=== PATIENT | female | born 1995 | race Caucasian/White ===

== ENCOUNTER 2022-08-02 13:45 | Outpatient (CLI) | payer BC, SELFPAY | END 2022-08-02 13:46 | disposition home or self-care (01) | LOC: NFLDREF 08-06 17:39 | PROVIDERS: PCP Family Medicine; Visit Provider Registered Nurse | DX: Z31.41 Encounter for fertility testing (principal) | CPT/HCPCS: 82670; 83001; 84144; 84443 ==

== ENCOUNTER 2022-08-12 10:00 | Outpatient (CLI) | payer BC, SELFPAY ==
[2022-08-13 09:58] LABS: Follicle Stimulating Hormone 4.2 IU/L
[2022-08-13 10:30] LABS: Estradiol Premenol Female 44 pg/mL
== END 2022-08-12 10:01 | disposition home or self-care (01) ==
LOC: LAB 08-18 19:48
PROVIDERS: PCP Family Medicine; Visit Provider Registered Nurse
DX: Z31.41 Encounter for fertility testing (principal); Z31.9 Encounter for procreative management, unspecified
CPT/HCPCS: 36415; 82670; 83001

== ENCOUNTER 2022-08-13 09:51 | Outpatient (CLI) | payer BC, SELFPAY ==
--- NOTE | 2022-08-13 10:15 | CRLHL7_ITS ---
For Patients: As a result of the Century Cures Act, medical imaging exams and procedure reports are released immediately into your electronic medical record. You may view this report before your referring provider. If you have questions, please contact your health care provider. INDICATION: Fertility evaluation. TECHNIQUE: Hysterosalpingogram with fluoroscopy. Catheterization and contrast injection was performed by head of precision targeting. IMPRESSION: Normal exam. Uterine contour is normal. No discernible filling defect or septation. Fallopian tubes are normal with free contrast spillage around both ovaries. Fluoroscopy time 11 seconds. Five images were captured. Dictated by Moose Mason MD @ 08/13/2022 11:15:58 AM (Electronically Signed)
--- NOTE | 2022-08-13 11:15 | P.GYNPRC_ITS ---
Procedure Note Date Seen: 08/13/22 Procedure Details: PREPROCEDURE DIAGNOSIS: Infertility. POSTPROCEDURE DIAGNOSIS: 1. Infertility. 2. Patent fallopian tubes bilaterally. NAME OF PROCEDURE: Hysterosalpingogram. SURGEON: Shyanne. ANESTHESIA: None. COMPLICATIONS: None. PROCEDURE: After obtaining verbal consent, the patient was placed in the dorsal lithotomy position on the x-ray table. An open-sided bivalve speculum was introduced into the vagina and the cervix easily visualized. The cervix and vagina were then prepped with Betadine. The anterior lip of the cervix was grasped with a single-tooth tenaculum for traction. A balloon tipped double- lumen catheter was then gently inserted through the cervical opening into the uterine cavity to the level of the fundus. The balloon was insufflated with 3 mL of air. The tenaculum and speculum were removed. The patient was repositioned in the supine position, covered, and the radiologist was called to the room. A hysterosalpingogram was then performed. A total of 6 cc of Optiray 300 water soluble contrast dye was injected throught he double-lumen catheter under moderate pressure. There was immediate fill of the uterine cavity to the cornua immediate fill of both fallopian tubes and free spillage of dye on both sides. The balloon was deflated. The catheter was removed. The patient tolerated the procedure well, though she did have moderate cramping discomfort during and just after the procedure. She was discharged to home in stable condition and to follow [facility] as [facility]. A referral to reproductive endocrinology was discussed as couple has now completed their fertility workup, and only male factor (low sprem morphology) was discovered and urology referral cannot be obtained until 2022. Patient will let me know if they desire a referral to [facility].
== END 2022-08-13 09:52 | disposition home or self-care (01) ==
LOC: RAD 09:51
PROVIDERS: PCP Family Medicine; Visit Provider Obstetrics & Gynecology
DX: Z31.41 Encounter for fertility testing (principal)
CPT/HCPCS: 58340; 74740; A4649; Q9967

== ENCOUNTER 2022-10-08 14:10 | Outpatient (CLI) | payer BC, SELFPAY ==
[2022-10-08 20:21] LABS: Hepatitis B Surface Antigen* Negative (Negative)
[2022-10-08 20:28] LABS: HIV 1/2/P24 Combo Screen* Negative (Negative)
[2022-10-08 20:39] LABS: Hepatitis C Virus Antibody* Negative (Negative)
[2022-10-08 21:22] LABS: Chlamydia DNA Amplified* NOT DETECTED (No Detected); GC DNA Amplified* NOT DETECTED (No Detected)
[2022-10-11 00:37] LABS: Varicella-Zoster Virus Ab, IgG 463.8 IV
[2022-10-11 00:41] LABS: Rubella Antibody IgG 6.1 IU/mL
[2022-10-11 02:09] LABS: Rapid Plasma Reagin (RPR) Non Reactive (Non Reactive)
== END 2022-10-08 14:11 | disposition home or self-care (01) ==
PROVIDERS: PCP Family Medicine; Visit Provider Registered Nurse
DX: Z34.91 Encounter for supervision of normal pregnancy, unspecified, first trimester (principal); Z3A.08 8 weeks gestation of pregnancy
CPT/HCPCS: 76817; 86592; 86703; 86762; 86787; 86803; 86850; 86900; 86901; 87086; 87340; 87491; 87591

== ENCOUNTER 2022-10-22 09:07 | Outpatient (CLI) | payer BC, SELFPAY ==
--- NOTE | 2022-10-22 09:15 | CRLHL7_ITS ---
For Patients: As a result of the Cures Act, medical imaging exams and procedure reports are released immediately into your electronic medical record. You may view this report before your referring provider. If you have questions, please contact your health care provider. INDICATION: Followup; mild increase in soft tissue fluid. COMPARISON: Ob ultrasound October 08, 2022. Technique: OB ultrasound. Findings : Single viable intrauterine gestation of 11 weeks and 5 days duration with expanded expected date of delivery 05/10/2023. cardiac activity is 171 beats per minute. Onaka-rump length is 5 cm and the diameter of the gestational sac is 5 cm. The right ovary is measuring 3.1 x 2.2 x 2.4 cm and the left ovary is measuring 4 x 3 x 2.7 cm. Corpus luteum cyst left ovary without any interval change. No fluid identified in the posterior body wall of the fetus. IMPRESSION: Single viable intrauterine gestation of 11 weeks and 5 days duration with the expected date of delivery 05/10/2023. no abnormalities identified. Dictated by Ary Mckeon MD @ 10/22/2022 1:38:59 PM (Electronically Signed)
== END 2022-10-22 09:08 | disposition home or self-care (01) ==
LOC: US 09:08
PROVIDERS: PCP Family Medicine; Visit Provider Registered Nurse
DX: Z34.91 Encounter for supervision of normal pregnancy, unspecified, first trimester (principal); Z3A.11 11 weeks gestation of pregnancy
CPT/HCPCS: 76816

== ENCOUNTER 2022-12-26 13:43 | Outpatient (CLI) | payer BC, SELFPAY ==
--- NOTE | 2022-12-26 14:00 | CRLHL7_ITS ---
For Patients: As a result of the Century Cures Act, medical imaging exams and procedure reports are released immediately into your electronic medical record. You may view this report before your referring provider. If you have questions, please contact your health care provider. INDICATION: Evaluate anatomy. COMPARISON: 10/08/2022, 10/22/2022 TECHNIQUE: Real time wilde scale imaging of the fetus was performed as well as color Doppler analysis of the umbilical vessels. FINDINGS: Sonographic imaging demonstrates a single living intrauterine gestation. Fetus demonstrates a regular cardiac rate of 142 beats per minute. Fetus has a variable position. The placenta lies posteriorly. The edge of the placenta is located 4 millimeters from the internal cervical os. Amniotic fluid volume appears normal. Single deepest vertical pocket: 4.1 cm. The cervix is closed and measures 3.2 cm in length. The composite ultrasound gestational age is calculated at 20 weeks 2 days with an estimated sonographic due date of 05/13/2023. The estimated weight is 358 grams which lies at the 81st %. The following biometric measurements were obtained: Biparietal diameter: 4.6 cm/19 weeks 6 days 52nd% Head circumference: 17.3 cm/19 weeks 6 days 43rd% Abdominal circumference: 15.8 cm/20 weeks 6 days 78th% Femur length: 3.3 cm/20 weeks 1 day 55th% The HC/AC ratio measures: 1.10 range (1.07-1.25) On anatomic survey, there is a normal appearance of the cerebral ventricles, cavum septi pellucidi, cisterna magna and cerebellum. The nose, lips, and facial profile appear normal. The cervical, thoracic and lumbar spine are well visualized and appear normal. There is a normal four-chamber heart view and the left and right ventricular outflow tracts appear normal. The diaphragm and stomach appear normal. The kidneys and bladder also appear normal. There is a normal three-vessel cord and cord insertion site. The four extremities appear normal. IMPRESSION: Concordance of clinical and sonographic dating. No intrinsic abnormalities noted on anatomic survey. Low lying posterior placenta with the placental edge 4 millimeters from the internal cervical os with transvaginal imaging. Dictated by Giovanni Moreira MD @ 12/27/2022 11:22:16 AM (Electronically Signed)
== END 2022-12-26 13:44 | disposition home or self-care (01) ==
LOC: US 13:43
PROVIDERS: PCP Family Medicine; Visit Provider Registered Nurse
DX: Z34.92 Encounter for supervision of normal pregnancy, unspecified, second trimester (principal); O44.42 Low lying placenta NOS or without hemorrhage, second trimester; Z3A.20 20 weeks gestation of pregnancy
CPT/HCPCS: 76805; 76817

== ENCOUNTER 2023-02-18 10:13 | Outpatient (CLI) | payer BC, SELFPAY | END 2023-02-18 10:14 | disposition home or self-care (01) | LOC: NFLDREF 02-20 06:00 | PROVIDERS: PCP Family Medicine; Referring Provider Family Medicine; Visit Provider Registered Nurse | DX: Z34.90 Encounter for supervision of normal pregnancy, unspecified, unspecified trimester (principal) | CPT/HCPCS: 86592 ==

== ENCOUNTER 2023-04-15 07:54 | Outpatient (CLI) | payer BC, SELFPAY ==
--- NOTE | 2023-04-15 08:15 | CRLHL7_ITS ---
For Patients: As a result of the Cures Act, medical imaging exams and procedure reports are released immediately into your electronic medical record. You may view this report before your referring provider. If you have questions, please contact your health care provider. INDICATION: Third trimester scan, evaluate growth. COMPARISON: 03/18/2023 TECHNIQUE: Real time wilde scale imaging of the fetus was performed. FINDINGS: Sonographic imaging demonstrates a single living intrauterine gestation. Fetus demonstrates a regular cardiac rate of 147 beats per minute. Fetus has a vertex position. The placenta lies left posterior. Amniotic fluid volume appears normal and there is a single deepest vertical pocket: 4.0 cm. The estimated weight is 2635gm which lies at the 40th %. On the prior OB ultrasound exam dated 03/18/2023 the estimated weight was at the 14th%. BPD 60th percentile. HC 60th percentile. AC 49th percentile. FL 17th percentile. The HC/AC ratio measures 1.05 range (0.93-1.09). IMPRESSION: Sonographic gestational age 35 weeks 5 days and sonographic due date 05/15/2023. Good correlation with dates. Normal interval growth. Estimated weight 40th percentile. Abdominal circumference 49th percentile. Dictated by Giovanni Moreira MD @ 04/15/2023 10:43:58 AM (Electronically Signed)
== END 2023-04-15 07:55 | disposition home or self-care (01) ==
LOC: US 07:55
PROVIDERS: PCP Family Medicine; Visit Provider Obstetrics & Gynecology
DX: Z34.93 Encounter for supervision of normal pregnancy, unspecified, third trimester (principal); Z3A.35 35 weeks gestation of pregnancy
CPT/HCPCS: 76816; 87081; 87653

== ENCOUNTER 2023-04-24 17:27 | Inpatient (IN) | payer BC, SELFPAY ==
[2023-04-24] VITALS (8 sets, daily range): BP systolic 130–134; BP diastolic 77–83; PULSE 83–99; RESP 15–16; TEMP 36.8–36.9; O2SAT 93–97; BMI 27.7
[2023-04-24 16:37] LABS: Amnisure Rom* Negative; Clue Cells No Clue Cells Seen (None Seen); Trichomonas No Trichomonas Seen (None Seen); Yeast No Yeast Seen (None Seen)
--- NOTE | 2023-04-24 16:47 | CRLHL7_ITS ---
For Patients: As a result of the Century Cures Act, medical imaging exams and procedure reports are released immediately into your electronic medical record. You may view this report before your referring provider. If you have questions, please contact your health care provider. INDICATION: Evaluate VAHID and well-being TECHNIQUE: Ultrasound OB pelvis transabdominal. Real-time wilde-scale imaging of the fetus was performed. COMPARISON: April 15, 2023 FINDINGS: Sonographic imaging demonstrates a single living intrauterine gestation. Fetus demonstrates a regular cardiac rate of 146 beats per minute. Fetus has a vertex orientation. The placenta lies posterior and to the left. Amniotic fluid volume appears normal with an VAHID of 4.3 cm. Single deepest pocket is 2.5. breathing movements, motion, and tone were all observed. IMPRESSION: Single viable intrauterine with a biophysical profile 8/8. Single deepest pocket is 2.5. Dictated by Vero Toro MD @ 04/24/2023 5:58:53 PM (Electronically Signed)
--- NOTE | 2023-04-24 17:35 | P.OBHP_ITS ---
OB - H&P: HPI Labor/Induction History of Present Illness Time Seen by Provider: 17:35 Date Seen: 04/24/23 Chief Complaint: The patient is a 28 year old 1 para 0 at 36 6/7 weeks gestation by LMP consistent with 1st trimester ultrasound, who presents with PPROM. OB Problem list: 1. H/o infertility. Had evaluation at [facility] and consult with [facility]. +UPT before initiating treatment! 2. Family h/o mental retardation in 4/7 aunts and uncles on Luis's side of family. Genetic testing for Kimberley and Luis are reportedly normal. 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 Possible posterior edema on initial u/s. F/u in 2 weeks: no fluid identified in the posterior body wall of the fetus 4. Rubella non-immune: recommend immunization. 5. Low lying placenta at 20 week: 0.4 cm - Plan: Repeat ultrasound at 32 weeks to assess placenta location: Posterior placenta, 4.5 cm from the internal os - Follow up growth scan at 36 weeks due to EFW 81%tile --> 14%tile: 04/15/23: EFW: 41%, normal Chief complaint: Maternity : 1 Para: 0 Date of last menstrual period: 08/09/22 Estimated date of delivery: 05/16/23 Gestational age based on last menstrual period: 36 Indications for induction: other (PPROM) Narrative: Patient states that she was doing well until about 3:00 p.m. when she felt a mucous discharge and after wiping she saw a streak of blood. Patient states that right afterwards she again felt like when your are bleeding on your period and she went back to the restroom and noticed a more watery discharge with bright red blood that dripped on the toilet. She placed a pad and called the unit. Patient states that she had to change the pad prior to coming in and this felt soaked. Upon evaluation at the unit, no evidence of gross rupture of membranes, AmniSure was negative, OB US completed and found a normal SDP of amniotic fluid but VAHID was less than 5cm. Recommendation was given to perform a fern test and while I was talking to her prepping her for speculum exam she again felt a watery like discharge and it was evident that this is amniotic fluid. Recommendation was given for admission and delivery. History of Present Dating criteria: based on LMP care: good care Ultrasounds: normal 1st trimester US and normal mid trimester US complications comment: PPROM Medical complications: none Labs Blood type: O (+) positive Rubella: nonimmune RPR/VDLR: nonreactive GBS status: negative HBsAG: negative Review of Systems Status of ROS: Reports: 10 or more systems reviewed and unremarkable except as noted in History and below Meds Home Medications and Allergies Home Medications Medication Instructions Recorded Confirmed Type fluticasone propionate 50 1 spray intranasal QDAY 07/19/22 04/24/23 History mcg/actuation nasal spray,suspension (Flonase Allergy Relief) prenat.vits,hemant,jse-yvju-etxnp 1 tab PO QDAY 10/08/22 04/24/23 History Allergies Allergy/AdvReac Type Severity Reaction Status Date / Time Sulfa Antibiotics Allergy Intermediate Hives Uncoded 04/15/23 08:38 OB - H&P: Exam Physical Exam: Vital signs: Pulse BP Pulse Ox 89 130/77 96 04/24/23 15:57 04/24/23 15:57 04/24/23 15:57 Narrative: VITAL SIGNS: As noted above. GENERAL APPEARANCE: Alert, cooperative female in no acute distress. MOOD & AFFECT: Normal. ABDOMEN: Gravid, non tender : 1/70/vx/-1 EXTREMITIES: Nonedematous. Well perfused. Nontender. NST: 135bpm/positive accelerations/negative decelerations/ moderate variability/ irregular uterine contractions OB - Results Imaging OB US: Attestation: I have reviewed the pertinent imaging results. OB - Problem Based A/P Additional Plan (1) premature rupture of membranes: Status: Acute Plan: 1. GBS negative no need for antibiotic prophylaxis. 2. Induction/augmentation of labor, patient is interested in starting oxytocin as soon as possible if uterine contractions are spaced out. Otherwise will try to avoid multiple cervical checks to decrease risk of infection. 3. Pain management as preferred by patient. 4. Continuos monitoring due to episode of bleeding, r/o abruption continue to monitor closely, at this moment no additional episodes of bleeding other that the one described that happened at patients home.
[2023-04-25] VITALS (62 sets, daily range): BP systolic 102–224; BP diastolic 50–162; PULSE 71–121; RESP 15–18; TEMP 36.4–37.1; O2SAT 92–98
[2023-04-25 01:08] LABS: Basophils Percent Auto 0.2 % (0.0-3.0); Eosinophils Percent Auto 1.1 % (0.0-7.0); Hematocrit 38.7 % (33.0-51.0); Hemoglobin* 13.2 gm/dL (12.0-16.0); Immature Granulocytes Pct Auto 1.1 %; Lymphocytes Percent Auto 17.3 % (20-44); Mean Corpuscular HGB Conc 34 gm/dL (32-36); Mean Corpuscular Hemoglobin 32 pg (26-34); Mean Corpuscular Volume 92 fL (80-100); Monocytes Percent Auto 6.8 % (0.0-11.0); Neutrophils Percent Auto 73.5 % (42.0-72.0); Platelet Count* 206 K/uL (140-440); Red Blood Count 4.19 m/uL (4.00-5.20); White Blood Count* 12.24 K/uL (4.50-11.00)
[2023-04-25] MEDS: LACTATED RINGERS 1000 ML 1,000 ML 999 ML IV ×3 (01:11→09:10)
[2023-04-25 01:13] LABS: Slide Review Reflex No
[2023-04-25] MEDS: ROPIVACAINE 0.2% 100 ml 100 ML 12 MG EPIDURAL (02:03)
--- NOTE | 2023-04-25 02:33 | PM.ANBPRC ---
[facility] Medical History Carpal tunnel syndrome Surgical History History of third molar tooth extraction (2016) Family History Mother High blood pressure High cholesterol Pre-diabetes ADD (attention deficit disorder) Maternal Grandfather Diabetes Colon cancer Heart disease Stroke High blood pressure Paternal Grandfather Lupus Diabetes Bladder cancer FHx: prostate cancer Kidney disease Heart disease High blood pressure Father High blood pressure Sister ADD (attention deficit disorder) Maternal Grandmother High cholesterol Paternal Grandmother Sjogren's disease Social History What is your current living situation?: I presently have a place to live Problems where you live: no known problems In the past 12 months, utilities in danger of being shut off: no In the past 12 mos, have been you worried that your food would run out before you had money to buy more?: never true In the past 12 mos, the food you bought just didn't last and you didn't have money to buy more?: never true Smoking Status: Never smoker How often does anyone, including family, friends and others, physically hurt you: never How often does anyone, including family, friends and others, insult or talk down to you: never How often does anyone, including family, friends and others, threaten you with harm: never How often does anyone, including family, friends and others, scream or curse at you: never Little interest or pleasure in doing things: not at all Feeling down, depressed, or hopeless: not at all Meds Home Medications and Allergies Home Medications Medication Instructions Recorded Confirmed Type fluticasone propionate 50 1 spray intranasal QDAY 07/19/22 04/24/23 History mcg/actuation nasal spray,suspension (Flonase Allergy Relief) prenat.vits,hemant,isi-ebie-nccif 1 tab PO QDAY 10/08/22 04/24/23 History Allergies Allergy/AdvReac Type Severity Reaction Status Date / Time Sulfa Antibiotics Allergy Intermediate Hives Uncoded 04/15/23 08:38 Results Labs Labs: Laboratory Results - last 24 hr 04/24/23 04/25/23 16:10 01:00 WBC 12.24 H RBC 4.19 Hgb 13.2 Hct 38.7 MCV 92 MCH 32 MCHC 34 RDW Coeff of See 13.0 Plt Count 206 Neut % (Auto) 73.5 H Lymph % (Auto) 17.3 L [place] % (Auto) 6.8 Eos % (Auto) 1.1 Baso % (Auto) 0.2 Neut # (Auto) 9.00 H Lymph # (Auto) 2.10 [place] # (Auto) 0.80 Eos # (Auto) 0.10 Baso # (Auto) 0.00 Abs Immat Gran (auto) 0.10 Imm/Tot Granulo (auto) 1.1 Membrane Rupture Negative Vaginal Trichomonas No Trichomonas Seen Vaginal Yeast No Yeast Seen Vaginal Clue Cells No Clue Cells Seen Blood Type O Positive Antibody Screen NEGATIVE Vital Signs Vital Signs: Last Vital Signs Temp 98.3 F 04/24/23 19:16 Pulse 83 04/25/23 02:30 Resp 15 04/24/23 19:16 BP 123/66 04/25/23 02:30 Pulse Ox 94 04/25/23 01:57 Weight: 66.587 kg Height: 154.94 cm Anesthesia Procedures Epidural Insertion Patient Location: OB Start Time: 01:40 Stop Time: 02:25 Start Date: 04/25/23 Stop Date: 04/25/23 Reason for Block: procedure for pain Patient Position: sitting Performed By: Chase Lemos Preanesthetic Checklist: IV checked, risks and benefits discussed, surgical consent, monitors and equipment checked, pre-op evaluation, timeout performed and anesthesia consent Prep: chlorhexidine gluconate Monitoring: blood pressure monitoring, continuous pulse oximetry and heart rate Approach: midline Vertebral Space: lumbar (1-5) Epidural Technique: RADHA saline Needle Type: Tuohy needle Injection Technique: continuous catheter Needle gauge: 17 Needle Length (cm): 10 cm Needle Insertion Depth (cm): 6 Catheter Gauge: 19 Catheter Type: multi-orifice Catheter at skin depth (cm): 12 Test Dose Result: negative and lidocaine 1.5% with epinephrine 1 to 200,000
[2023-04-25] MEDS: OXYTOCIN 30 unit/500 ML in NS 30 UNIT/500 ML BAG IVPB (07:05)
[2023-04-25] MEDS: METHYLERGONOVINE MALEATE 0.2 MG/ML INJ IM ×2 (07:48→08:09)
[2023-04-25] MEDS: TRANEXAMIC ACID 100 MG/ML INJ 1000 MG IV (07:51)
[2023-04-25] MEDS: miSOPROStoL 800 MCG/4 TABLET PR (07:52)
[2023-04-25 08:23] LABS: Basophils Percent Auto 0.2 % (0.0-3.0); Eosinophils Percent Auto 0.1 % (0.0-7.0); Hematocrit 36.2 % (33.0-51.0); Hemoglobin* 12.3 gm/dL (12.0-16.0); Immature Granulocytes Pct Auto 0.2 %; Mean Corpuscular HGB Conc 34 gm/dL (32-36); Mean Corpuscular Hemoglobin 32 pg (26-34); Mean Corpuscular Volume 93 fL (80-100); Monocytes Percent Auto 6.4 % (0.0-11.0); Neutrophils Percent Auto 84.1 % (42.0-72.0); Platelet Count* 178 K/uL (140-440); RDW Coefficient of Variation % 13.1 % (11.5-15.5); Red Blood Count 3.88 m/uL (4.00-5.20); White Blood Count* 14.51 K/uL (4.50-11.00)
[2023-04-25 08:27] LABS: Slide Review Reflex No
[2023-04-25] MEDS: ONDANSETRON 2 MG/ML inj 4 MG IV (08:31)
[2023-04-25 08:45] LABS: INR 0.98 (0.91-1.10); Prothrombin Time 13.6 Seconds
[2023-04-25 08:46] LABS: Fibrinogen* 413 mg/dL (200-450); Partial Thromboplastin Time* 28 Seconds (23-33)
--- NOTE | 2023-04-25 10:43 | W.PM.OBVAGDE ---
OB Procedure Vag Delivery Mother Details Mother Details: The patient is a 28 year-old, 1, Para 0, admitted on 04/24/23 at 37.0 Days gestation after PPROM at 36 6/7 weeks. : 1 Para: 1 Weeks Gestation: 37 Admission Date: 04/24/23 Additional Details Amniotic Membrane Rupture Date: 04/24/23 Amniotic Membrane Rupture Time: 14:00 Heart: heart tones during second stage were [] Delivery Details Delivery Date: 04/25/23 Delivery Time: 07:39 Route of delivery: Infant Gender: Male Viability: Alive; Heart Rate Present Position at Delivery: OA Delivery Details: Delivered over intact perineum, a tight nuchal cord identified attempted to be reduced but this was not possible, tried to deliver through but this was not possible either, I then proceeded to clamp and cut the umbilical cord at the perineum. was placed on maternal abdomen. Nose and mouth were bulb suctioned.? weight: 6 pounds and 4 ounces. Immediate uterine atony associated with significant heavy bleeding, managed with IV Oxytocin, IM Methergine x1, 1g of TXA, 800mcg rectal Cytotec. Cervix was evaluated and no lacerations identified, laceration repaired and brisk bleeding noted, ordered lab work r/o coagulopathy. 1 Minute Interval Total Score: 7 5 Minute Interval Total Score: 8 Additional Details Shoulder Dystocia: No Placenta Delivery Time: 07:41 Placental Delivery Description: Spontaneous (Looked complete but also with a large clot, suspicious for abruption. ) Delivery repair: Vicryl Procedure Done: Global Blood Loss: 471 Laceration: Perineal - 2nd Degree Episiotomy Description: None Blood Loss Measurement Type: QBL Bakri Used: No Sponge/Need Count Correct: Yes Cord Vessel Description: 3 Vessels, Nuchal Cord, Tight and Clamped/Cut Event Summary Status: Mother and were stable after delivery. Disposition: floor
[2023-04-25] MEDS: ACETAMINOPHEN 500 MG TABLET 1000 MG PO ×2 (12:54→19:35)
[2023-04-25] MEDS: IBUPROFEN 600 MG TABLET PO ×2 (16:08→21:30)
[2023-04-26 01:00] VITALS: BP 107/75; PULSE 76; RESP 15; TEMP 36.7
[2023-04-26] MEDS: ACETAMINOPHEN 500 MG TABLET 1000 MG PO (01:13)
[2023-04-26 05:15] VITALS: BP 114/76; PULSE 78; RESP 15; TEMP 36.6
[2023-04-26 06:56] LABS: Hemoglobin* 10.7 gm/dL (12.0-16.0)
[2023-04-26] MEDS: MEASLES,MUMPS,RUBELLA VACC/PF 1 DOSE INJ 1 EACH SUBCUT (07:47)
[2023-04-26] MEDS: DOCUSATE SODIUM 100 MG CAPSULE PO (07:48)
[2023-04-26 07:53] VITALS: BP 112/72; PULSE 92; RESP 20; TEMP 36.3; O2SAT 95
--- NOTE | 2023-04-26 09:39 | P.DS_ITS ---
DS: Providers Provider Date Seen: 04/26/23 Date of admission: 04/24/23 17:27 Primary care physician: Tiara Kee MD Admitting Clinician: Dee Saldana MD Attending Physician on discharge: Maria Isabel Ocampo MD Date of Discharge: 04/26/23 DS: Diagnosis Discharge Diagnosis (1) Normal spontaneous vaginal delivery: Status: Acute (2) Obstetrical laceration, second degree: Status: Acute (3) premature rupture of membranes: Status: Acute Exam Narrative: Exam Narrative: General: Pleasant, no acute distress Heart: Regular rate and rhythm, no murmur or gallop Lungs: Clear to auscultation bilaterally Abdomen: Soft, nontender, fundus well below umbilicus Lower extremities: No edema or erythema Const: Vital Signs, click to edit/add: Vital Signs - 24 hr 04/25/23 09:40 04/25/23 09:49 04/25/23 09:49 Temperature Pulse Rate 74 80 Pulse Rate [Blood Pressure Cuff] Respiratory Rate 18 Blood Pressure 123/71 126/71 Blood Pressure [Le ft Arm] Pulse Oximetry Oxygen Delivery Me thod 04/25/23 09:54 04/25/23 09:55 04/25/23 12:20 Temperature 97.9 F 98.2 F Pulse Rate 71 Pulse Rate [Blood Pressure Cuff] 72 Respiratory Rate 18 18 Blood Pressure 126/71 Blood Pressure [Le ft Arm] 114/77 Pulse Oximetry Oxygen Delivery Me thod 04/25/23 16:15 04/25/23 21:00 04/26/23 01:00 Temperature 97.6 F 98.3 F 98.0 F Pulse Rate Pulse Rate [Blood Pressure Cuff] 90 78 76 Respiratory Rate 18 16 15 Blood Pressure Blood Pressure [Le ft Arm] 107/74 108/71 107/75 Pulse Oximetry 96 Oxygen Delivery Me thod Room Air 04/26/23 05:15 04/26/23 07:53 Temperature 97.9 F 97.4 F L Pulse Rate Pulse Rate [Blood Pressure Cuff] 78 92 Respiratory Rate 15 20 Blood Pressure Blood Pressure [Le ft Arm] 114/76 112/72 Pulse Oximetry 95 Oxygen Delivery Me thod Room Air Room Air OB - DS: Summary Hospital Course Hospital Course: Kimberley is a 28-year-old G1 now P 1-0-0-1 woman who is status post normal s pontaneous vaginal delivery on 04/24/2023 at 37 0/7 weeks gestation after PPROM at 36 6/7 weeks' gestation. She gave to a male . She had a 2nd degree perineal laceration. Findings of placenta were suspicious for abruption. QBL was 471 cc. OB Problem list: 1. H/o infertility. Had evaluation at [facility] and consult with MELODY. +UPT before initiating treatment! 2. Family h/o mental retardation in 4/7 aunts and uncles on Luis's side of family. Genetic testing for Kimberley and Luis are reportedly normal. 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 Possible posterior edema on initial u/s. F/u in 2 weeks: no fluid identified in the posterior body wall of the fetus 4. Rubella non-immune: recommend immunization. 5. Low lying placenta at 20 week: 0.4 cm - Plan: Repeat ultrasound at 32 weeks to assess placenta location: Posterior placenta, 4.5 cm from the internal os - Follow up growth scan at 36 weeks due to EFW 81%tile --> 14%tile: 04/15/23: EFW: 41%, normal Today, on day 1, she has no complaints. She has mild perineal soreness. She is bottle feeding her male infant. She is ambulating and urina ting without difficulty. She denies any heavy bleeding. Vitals have been stable. She has remained afebrile. Peripartum Data delivery method: Vaginal Laceration description: Perineal - 2nd Degree Episiotomy description: None Price Infant Gender: Male Time Spent with Patient Time attestation: Total time spent providing and/or coordinating discharge services: Time spent: Less than 30 minutes Discharge Plan Discharge Disposition: Home, Self-Care Date of Admission: 04/24/23 17:27 Attending Provider on Discharge: Maria Isabel Ocampo Primary Care Provider: Tiara Kee Condition: Improved Anticipated Discharge Date/Time: 04/26/23 09:43 Discharge Medications: New acetaminophen 500 mg Tablet 1,000 mg PO Q6H PRNQty: 0 0RF docusate sodium 100 mg Capsule 100 mg PO DAILY Qty: 0 0RF ibuprofen 600 mg Tablet 600 mg PO Q6H PRNQty: 0 0RF Continued prenat.vits,hemant,[id number] Tablet 1 tab PO QDAY fluticasone propionate [Flonase Allergy Relief] 50 mcg/actuation spray,suspension 1 spray intranasal QDAY Rx Instructions: administer into each nostril Discharge Orders: Discharge Order (Routine); Ordered 04/26/23 Ordered By: Maria Isabel Ocampo Patient Education: OB Vaginal/Bottle Feeding Additional Instructions: Discharge instructions were reviewed with the patient including signs and symptoms of infection and home going medications. Off Work or School for 6 weeks. Symptoms to report to doctor: -Bleeding that saturates more than one pad per hour ?-Passing clots larger than the size of a golf ball ?-Pain not relieved by prescribed medication ?-Fever above 100.4 degrees Fahrenheit ?-A foul vaginal odor ?-Difficulty in emotions, mood and functions ?-Thoughts of hurting yourself and/or ?-Painful, reddened area in your breast ?-Any drainage, redness or tenderness in your IV/epidural site ?-Severe headache that doesn't improve after taking medications ?-Changes in vision, including temporary loss of vision, blurred vision, and/or light sensitivity ?-Upper abdominal pain (usually under ribs on the right side) ?-Decrease in urination or painful, frequent urinating ?-Chest pain ?-Shortness of breath ?-Tenderness or pain with redness and/swelling in the calf(s) of your leg Follow [facility] with [facility]. consultation services are available to all mothers and babies for the first year after delivery.? To make an appointment, please call [phone]. Activity Detail: Nothing per vagina for 6 weeks Discharge Diet: Regular Follow Up Appointments: Tiara Kee MD [Primary Care Provider] - Maria Isabel Ocampo MD [Staff Physician] - Forms: [facility] Info Instructions DS:Data Additional Comments Additional comments: Hemoglobin 10.7 on day 1
== END 2023-04-26 13:10 | disposition home or self-care (01) | DRG 560 ==
LOC: OB OUT 04-25 07:36
PROVIDERS: Admitting Provider Obstetrics & Gynecology; PCP Family Medicine; Visit Provider Obstetrics & Gynecology
DX: O42.013 Preterm premature rupture of membranes, onset of labor within 24 hours of rupture, third trimester (principal); O72.1 Other immediate postpartum hemorrhage; O70.1 Second degree perineal laceration during delivery; Z3A.36 36 weeks gestation of pregnancy; Z37.0 Single live birth
CPT/HCPCS: 01967; 36415; 76819; 84112; 85018; 85025; 85384; 85610; 85730; 86850; 86900; 86901; 87210; 88307; 99213; A9270; J2210; J2371; J2405; J2795; J7120; S0020

== ENCOUNTER 2023-10-19 16:27 | Emergency (ER) | payer BC, SELFPAY ==
[2023-10-19 16:36] VITALS: BP 141/85; PULSE 108; RESP 16; TEMP 37.5; O2SAT 96; BMI 23.6
--- NOTE | 2023-10-19 16:54 | ED_ITS ---
HPI - General Adult General Chief complaint: Ear/Nose/Throat Problem Stated complaint: ear infection, pressure Time Seen by Provider: 10/19/23 16:32 History of Present Illness HPI narrative: This 28-year-old female comes in reporting left ear pain over the past day or so. She also has a sore throat. Prior to this for the past week she has had some redness in her left eye that she states seemed to be a viral pinkeye. She does not report any purulent discharge. She does not have any cough and there is no report of fevers. Related Data Home Medications Medication Instructions Recorded Confirmed fluticasone propionate 50 1 spray intranasal QDAY 07/19/22 04/24/23 mcg/actuation nasal spray,suspension (Flonase Allergy Relief) Previous Rx's Medication Instructions Recorded norgestimate 0.25 mg-ethinyl 1 tab PO QDAY #84 tabs 06/06/23 estradiol 35 mcg tablet (Sprintec (28)) amoxicillin 500 mg capsule 500 mg PO TID 10 days #30 caps 10/19/23 methylprednisolone 4 mg tablets in See Rx Instructions PO .COMPLEX 10/19/23 a dose pack (Medrol (Nino)) #21 ea Allergies Allergy/AdvReac Type Severity Reaction Status Date / Time Sulfa Antibiotics Allergy Intermediate Hives Uncoded 06/06/23 09:08 Review of Systems Status of ROS: Reports: 10 or more systems reviewed and unremarkable except as noted in History and below Narrative: Constitutional: No fevers, no weight gain or loss. Eyes: No discharge. No vision changes. Left eye has some erythema. HENT: Left ear pain and sore throat. Cardiovascular: No chest pain, no palpitations. Respiratory: No shortness of breath, no wheezes, no cough. Gastrointestinal: No abdominal pain, no vomiting, no diarrhea. Genitourinary: No dysuria, no hematuria. Musculoskeletal: Normal range of motion. Skin: No rashes, no pruritis. Neurological: No dizziness, weakness, sensory change, speech change. Endo/Heme/Allergies: No bruising or bleeding. No polydipsia. Pysch: no suicidality, no anxiety, no insomnia. All other systems reviewed and are negative. [facility] Medical History premature rupture of membranes ?O42.919 - premature rupture of membranes, unspecified as to length of time between rupture and onset of labor, unspecified trimester (ICD-10) Urticaria due to cold ?L50.2 - Urticaria due to cold and heat (ICD-10) Carpal tunnel syndrome ?G56.00 - Carpal tunnel syndrome, unspecified upper limb (ICD-10) Surgical History History of third molar tooth extraction (2016) ?K08.409 - Partial loss of teeth, unspecified cause, unspecified class (ICD- 10) Family History Mother High blood pressure High cholesterol Pre-diabetes ADD (attention deficit disorder) Maternal Grandfather Diabetes Colon cancer Heart disease Stroke High blood pressure Paternal Grandfather Lupus Diabetes Bladder cancer FHx: prostate cancer Kidney disease Heart disease High blood pressure Father High blood pressure Sister ADD (attention deficit disorder) Maternal Grandmother High cholesterol Paternal Grandmother Sjogren's disease Social History What is your current living situation?: I presently have a place to live Problems where you live: no known problems In the past 12 months, utilities in danger of being shut off: no In past 12 months, lack of transportation kept you from medical appts, meetings, work, or getting things needed for daily living: no In the past 12 mos, have been you worried that your food would run out before you had money to buy more?: never true In the past 12 mos, the food you bought just didn't last and you didn't have money to buy more?: never true Smoking Status: Never smoker How often does anyone, including family, friends and others, physically hurt you : never How often does anyone, including family, friends and others, insult or talk down to you: never How often does anyone, including family, friends and others, threaten you with harm: never How often does anyone, including family, friends and others, scream or curse at you: never Little interest or pleasure in doing things: not at all Feeling down, depressed, or hopeless: not at all Exam Narrative: Exam Narrative: Constitutional: Well-developed, well-nourished, no acute distress. HEENT: Normocephalic, atraumatic. Oropharynx shows pharyngeal erythema without tonsillar hypertrophy or exudate. Right tympanic membrane appears normal. Left tympanic membrane has dullness with fluid present behind the tympanic membrane. Neck: Normal range of motion. Nontender. Supple. Heart: Regular. No murmurs. Normal rate. Intact distal pulses. Lungs: Clear to auscultation. No chest discomfort. No wheezes, rhonchi, or rales. Abdomen: Normal bowel sounds. Nontender. No rebound tenderness. Genitalia: Deferred. Back: No midline tenderness. Normal range of motion. Extremities: Normal range of motion. No injury. Skin: Intact. No rash. Warm. No erythema or pallor. Neurologic: No altered sensation. No weakness. Alert and oriented. Psychiatric: No suicidality. No anxiety or depression. No insomnia. Nursing notes and vitals signs are reviewed. Const: Vital Signs, click to edit/add: Vital Signs - 24 hr 10/19/23 16:36 Temperature 99.5 F Pulse Rate [Pulse Oximeter] 108 H Respiratory Rate 16 Blood Pressure [Ri ght Upper Arm] 141/85 H Pulse Oximetry 96 Oxygen Delivery Me thod Room Air Course Vital Signs Vital signs: Initial Vital Signs Temperature 99.5 F 10/19/23 16:36 Temperature Source Temporal Artery Scan 10/19/23 16:36 Pulse Rate 108 H 10/19/23 16:36 Pulse Rhythm Regular 10/19/23 16:36 Respiratory Rate 16 10/19/23 16:36 Blood Pressure 141/85 H 10/19/23 16:36 Blood Pressure Mean 103 10/19/23 16:36 Blood Pressure Position Sitting 10/19/23 16:36 Pulse Oximetry 96 10/19/23 16:36 Oxygen Delivery Method Room Air 10/19/23 16:36 Vital Signs Temperature 99.5 F 10/19/23 16:36 Pulse Rate 108 H 10/19/23 16:36 Respiratory Rate 16 10/19/23 16:36 Blood Pressure 141/85 H 10/19/23 16:36 Pulse Oximetry 96 10/19/23 16:36 Oxygen Delivery Method Room Air 10/19/23 16:36 Temperature 99.5 F 10/19/23 16:36 Pulse Rate 108 H 10/19/23 16:36 Respiratory Rate 16 10/19/23 16:36 Blood Pressure 141/85 H 10/19/23 16:36 Pulse Oximetry 96 10/19/23 16:36 Oxygen Delivery Method Room Air 10/19/23 16:36 Medical Decision Making MDM Narrative Medical decision making narrative: This patient comes in with symptoms typical of a left otitis media. She states that she is planning to travel to [place] tomorrow and wonders about the pressure changes in a plane. She may have some eustachian tube dysfunction related to her current otitis media. She did receive a prescription for amoxicillin and Medrol Dosepak. Discharge Plan Discharge Clinical Impression: Otitis media Patient Disposition: Home, Self-Care Condition: Stable Additional Instructions: Take medication as prescribed. Use [id number] medicines also as needed and directed. Follow up with MD return if worsening. Prescriptions: New amoxicillin 500 mg capsule 500 mg PO TID 10 Days Qty: 30 0RF methylprednisolone [Medrol (Nino)] 4 mg tablets,dose pack See Rx Instructions .ROUTE .COMPLEX Qty: 21 0RF Rx Instructions: orally per package directions No Action norgestimate-ethinyl estradiol [Sprintec (28)] 0.25-35 mg-mcg tablet 1 tab PO QDAY Qty: 84 4RF fluticasone propionate [Flonase Allergy Relief] 50 mcg/actuation spr ay,suspension 1 spray intranasal QDAY Rx Instructions: administer into each nostril Follow Up/Referrals: Tiara Kee MD [Primary Care Provider] - Stand Alone Forms: [facility] Info Instructions
== END 2023-10-19 17:09 | disposition home or self-care (01) ==
LOC: ED 17:08
PROVIDERS: Emergency Provider Emergency Medicine Emergency Medical Services; PCP Family Medicine
DX: H66.92 Otitis media, unspecified, left ear (principal)
CPT/HCPCS: 99283; 99284

== ENCOUNTER 2023-12-02 12:41 | Outpatient (CLI) | payer BC, SELFPAY | END 2023-12-02 12:42 | disposition home or self-care (01) | PROVIDERS: PCP Family Medicine; Visit Provider Physician Assistant Medical | DX: R00.2 Palpitations (principal) | CPT/HCPCS: 80053; 84443 ==

== ENCOUNTER 2025-09-13 09:52 | Outpatient (CLI) | payer BC, SELFPAY | END 2025-09-13 09:53 | disposition home or self-care (01) | PROVIDERS: PCP Family Medicine; Visit Provider Family Medicine | DX: Z00.00 Encounter for general adult medical examination without abnormal findings (principal) | CPT/HCPCS: 80053; 80061; 82306 ==